=== PATIENT | male | born 2000 | race Caucasian/White ===

== ENCOUNTER 2019-10-08 16:58 | Emergency (ER) | payer SELFPAY ==
[~2019-10-08] VITALS: Ht 167.6 cm; Wt 59.9 kg
[2019-10-08 17:29] VITALS: BP 119/82; Ht 167.6 cm; Wt 59.9 kg
== END 2019-10-08 19:29 | disposition home or self-care (01) ==
LOC: ED 16:58
DX: S01.21XA Laceration without foreign body of nose, initial encounter (principal); W53.81XA Bitten by other rodent, initial encounter; Y93.89 Activity, other specified; Y92.89 Other specified places as the place of occurrence of the external cause; Y99.8 Other external cause status
CPT/HCPCS: J2001